=== PATIENT | female | born 1975 | race Two or more races ===

== ENCOUNTER → 2025-07-31 | Outpatient (CLI) | payer BC, SELFPAY ==
[2025-07-31 16:37] LABS: Urea Breath Test Positive (Negative)
== END | disposition home or self-care (01) ==
PROVIDERS: PCP Internal Medicine; Referring Provider Internal Medicine; Visit Provider Internal Medicine
DX: B96.81 Helicobacter pylori [H. pylori] as the cause of diseases classified elsewhere (principal)
CPT/HCPCS: 83013; 83014